=== PATIENT | male | born 1995 | race African-American/Black ===

== ENCOUNTER 2017-01-22 20:41 | Emergency (ER) | payer SELFPAY ==
[2017-01-22 21:37] LABS: BASOPHILS 0.2 %; BASOPHILS ABSOLUTE 0.02 10/3/uL (0.0-0.16); EOSINOPHILS 0.5 %; EOSINOPHILS ABSOLUTE 0.05 10/3/uL (0.0-0.53); IMMATURE GRANULOCYTES 0.1 %; IMMATURE GRANULOCYTES ABSOLUTE 0.01 10/3/uL (0.0-0.11); LYMPHOCYTES 45.7 %; LYMPHOCYTES ABSOLUTE 4.53 10/3/uL (0.67-4.30); MEAN CORPUSCULAR HEMOGLOB 30.6 pg (26.0-34.0); MEAN CORPUSCULAR VOLUME 84.8 fL (80-100); MEAN PLATELET VOLUME 9.5 fL (9.2-13.0); MONOCYTES 6.1 %; MONOCYTES ABSOLUTE 0.61 10/3/uL (0.21-1.20); NEUTROPHILS 47.4 %; PLATELET COUNT 243 10/3/uL (150-400); RBC DISTRIBUTION WIDTH 14.4 % (12.0-16.0); RED CELL COUNT 4.94 10/6/uL (4.7-6.1)
[2017-01-22 21:38] LABS: HEMATOCRIT 41.9 % (40.0-51.0); HEMOGLOBIN 15.1 g/dL (13.6-17.8); MANUAL DIFF NO %; WHITE BLOOD CELLS 9.9 10/3/uL (4.5-10.5)
[2017-01-22 21:53] LABS: A/G RATIO 1.2 (0.7-1.9); ALBUMIN 4.2 G/DL (3.5-5.0); CALCIUM, SERUM 9.2 MG/DL (8.5-10.4); CHLORIDE, SERUM 102 MMOL/L (96-112); GLOBULIN 3.6 G/DL (2.5-4.1); SALICYLATE 2.6 MG/DL (-); SGPT(ALT) 19 U/L (5-65); SODIUM, SERUM 137 MMOL/L (135-148); TOTAL PROTEIN 7.8 G/DL (6.0-8.5); TROPONIN I <0.02 NG/ML (<0.05)
[2017-01-22 21:57] LABS: ALKALINE PHOSPHATASE 77 U/L (45-117); BUN (BLOOD UREA NITROGEN) 17 MG/DL (6-23); CO2 (CARBON DIOXIDE) 24 MMOL/L (24-34); CREATININE 1.13 MG/DL (0.70-1.30); GFR AFRICAN AMERICAN 106 ML/MIN (>=60); GFR NON AFRICAN AMERICAN 91 ML/MIN (>=60); GLUCOSE, SERUM 106 MG/DL (60-99); POTASSIUM, SERUM 3.8 MMOL/L (3.5-5.3); SGOT(AST) 35 U/L (5-40)
[2017-01-22 21:58] LABS: ACETAMINOPHEN LEVEL (TYLENOL) < 2.0 MCG/ML (10.0-20.0); ALCOHOL < 10 MG/DL (0)
[2017-01-22 22:44] LABS: ASCORBIC ACID (UR NOT ORDER) NEG (NEG); BILIRUBIN, URINE NEGATIVE (NEG); KETONE, URINE 20 MG/DL (NEG); LEUKOCYTE ESTERASE(NOT OR NEG (NEG); NITRITE (URINE) NEG (NEG); WBC (NOT ORDERED) (RFLEX) 1 (0-5)
[2017-01-22 22:45] LABS: AMPHETAMINES (NOT ORD) NEG (NEG); BARBITURATES (NOT ORDERED NEG (NEG); BENZODIAZEPINES (NOT ORD) NEG (NEG); CANNABINOIDS (THC) NEG (NEG); COCAINE (NOT ORDERED) NEG (NEG); OPIATES NEG (NEG); PHENCYCLIDINE(PCP) NEG (NEG); TRICYCLICS NEG (NEG)
== END 2017-01-22 23:43 | disposition home or self-care (01) ==
LOC: ER 20:41
PROVIDERS: Nurse Practitioner Family
DX: F41.0 Panic disorder [episodic paroxysmal anxiety] (principal); F17.200 Nicotine dependence, unspecified, uncomplicated; V49.10XA Passenger injured in collision with unspecified motor vehicles in nontraffic accident, initial encounter
CPT/HCPCS: 71010; 80053; 80305; 80307; 81001; 83735; 84484; 85025; 93005; 96374; 96375; 99284; J1200; J2405